=== PATIENT | male | born 1980 | race Two or more races ===

== ENCOUNTER 2024-09-26 20:30 | Emergency (ER) | payer MEDICAID ==
[~2024-09-26] VITALS: Ht 172.7 cm; Wt 105.7 kg
[2024-09-26 20:43] VITALS: BP 133/77; TEMP 97.9; O2SAT 96
[2024-09-26] MEDS ORDERED: AMOX-430 PO (21:18)
[2024-09-26] MEDS ORDERED: TDAP [DIPH/PERTUSSIS/TET] 0.5 ML VIAL IM ONE (21:39)
[2024-09-26] MEDS: TDAP [DIPH/PERTUSSIS/TET] 0.5 ML VIAL IM ONE (21:43)
== END 2024-09-26 21:52 | disposition home or self-care (01) ==
LOC: ER 20:33
DX: S81.032A Puncture wound without foreign body, left knee, initial encounter (principal); Z60.2 Problems related to living alone; W54.0XXA Bitten by dog, initial encounter; Y93.89 Activity, other specified; Y92.89 Other specified places as the place of occurrence of the external cause; Y99.0 Civilian activity done for income or pay
CPT/HCPCS: 90715